=== PATIENT | female | born 1975 | race Caucasian/White ===

== ENCOUNTER → 2016-06-16 | Outpatient (CLI) | payer BC ==
[~2016-06-16] MED LIST: CATAFLAM50 MG PO; CELEXA10 MG PO; CHANTIX1 TAB PO; CLINDAMYCIN HC300 MG PO; CLINDAMYCIN150 MG PO; GLUCOSAMINE & C1 CA2 PO; HYDROCODONE BIT1 T11 PO; KEFLEX500 MG PO; MOTRIN800 MG PO; NAPROSYN500 MG PO; NKHM; PERCOCET 325 MG1 TA2 PO; ROBAXIN750 MG PO; TRAMADOL HCL50 MG PO; ULTRAM50 MG PO; VICODIN 5/500 505 MG PO; VICODIN ES 7501 TAB PO; VITAMIN D400 IU PO; XANAX0.5 MG PO; [UNRECOGNIZED DRUG - OTHER] PO
[2016-06-16 16:24] LABS: BASO % 0.4 % (0.0-1.0); EOS # 0.2 10*3/uL (0.0-0.4); EOS % 2.6 % (1.0-4.0); HEMATOCRIT 38.6 % (37.0-47.0); HEMOGLOBIN 12.4 g/dl (12.0-16.0); LYMPH # 1.7 10*3/uL (1.3-4.4); LYMPH % 22.6 % (27.0-41.0); MEAN CELL VOLUME 85.8 fl (81.0-99.0); MEAN CORPUSCULAR HGB 27.6 pg (27.0-31.0); MEAN CORPUSCULAR HGB CONC 32.1 g/dl (33.0-37.0); MONO # 0.6 10*3/uL (0.1-1.0); MONO % 8.2 % (3.0-9.0); NEUT # 4.8 10*3/uL (2.3-7.9); NEUT % 65.9 % (47.0-73.0); PLATELET COUNT AUTOMATED 185 10*3/uL (130-400); RED CELL DISTRI WIDTH 14.4 % (0-14.5); WHITE BLOOD COUNT 7.3 10*3/uL (4.8-10.8)
[2016-06-16 16:50] LABS: ALBUMIN 3.5 gm/dl (3.1-4.5); ALKALINE PHOSPHATASE 63 U/L (45-117); BILIRUBIN, TOTAL 0.2 mg/dl (0.2-1.0); BUN 8 mg/dl (7-24); CARBON DIOXIDE 29 mmol/L (21-32); CHLORIDE 106 mmol/L (98-107); CHOLESTEROL 193 mg/dL (<200); EST GLOM FILT AFRICAN AMERICAN > 60 ml/min; GLUCOSE 98 mg/dL (65-99); HDL CHOLESTEROL 42 mg/dl (40-60); LDL CHOLESTEROL 107 mg/dL (9-159); POTASSIUM 4.3 mmol/L (3.5-5.1); SGOT/AST 14 IU/L (3-35); SGPT/ALT 28 U/L (12-78); SODIUM 142 mmol/L (136-145); TRIGLYCERIDES 221 mg/dl (<150); VLDL CHOLESTEROL 44 mg/dL (6-40)
[2016-06-16 16:52] LABS: FOLIC ACID 7.04 ng/mL (>5.38); VITAMIN D, 25-HYDROXY 14.1 ng/mL (30-100)
== END | disposition home or self-care (01) ==
LOC: LAB 15:32
PROVIDERS: Internal Medicine
DX: Z00.00 Encounter for general adult medical examination without abnormal findings (principal); Z13.220 Encounter for screening for lipoid disorders; Z13.21 Encounter for screening for nutritional disorder; Z13.1 Encounter for screening for diabetes mellitus

== ENCOUNTER 2016-09-30 21:16 | Emergency (ER) | payer BC ==
[~2016-09-30] VITALS: Wt 108.9 kg
--- NOTE | ~2016-09-30 | EKG ---
[place], [place] ELECTROCARDIOGRAM REPORT NAME: CHANDA CORNELIUS UNIT #: [id number] ROOM: DOCTOR: SARABJIT HAWK MD BIRTHDATE: [birth year] DOS: 09/30/2016 TIME: 2154 hours. Sinus tachycardia 123 beats per minute. The tracing is normal. No previous tracing is available for comparison. SARABJIT HAWK MD CM:EKGRPT:ELECTROCARDIOGRAM REPORT 06 0012 SARABJIT HAWK MD
[2016-09-30] MEDS ORDERED: LISINOPRIL5 MG PO (21:27)
[2016-09-30] MEDS ORDERED: XANAX0.5 MG PO (21:27)
[2016-09-30] MEDS ORDERED: CELEXA10 MG PO (21:27)
[2016-09-30 22:08] LABS: BASO % 0.2 % (0.0-1.0); EOS # 0.2 10*3/uL (0.0-0.4); EOS % 2.6 % (1.0-4.0); HEMATOCRIT 39.6 % (37.0-47.0); HEMOGLOBIN 12.7 g/dl (12.0-16.0); LYMPH # 0.8 10*3/uL (1.3-4.4); LYMPH % 8.9 % (27.0-41.0); MEAN CELL VOLUME 85.9 fl (81.0-99.0); MEAN CORPUSCULAR HGB 27.5 pg (27.0-31.0); MEAN CORPUSCULAR HGB CONC 32.1 g/dl (33.0-37.0); MEAN PLATELET VOLUME 10.2 fl (9.6-12.3); MONO # 0.5 10*3/uL (0.1-1.0); MONO % 5.7 % (3.0-9.0); NEUT # 7.4 10*3/uL (2.3-7.9); NEUT % 82.2 % (47.0-73.0); PLATELET COUNT AUTOMATED 188 10*3/uL (130-400); RED BLOOD COUNT 4.61 10*6/uL (4.10-5.10); RED CELL DISTRI WIDTH 15.3 % (0-14.5)
[2016-09-30 22:12] LABS: BILIRUBIN NEGATIVE (NEGATIVE); BLOOD 2+ (NEGATIVE); CLARITY SL CLOUDY (CLEAR); COLOR YELLOW (YELLOW); GLUCOSE NEGATIVE (NEGATIVE); KETONE NEGATIVE (NEGATIVE); LEUKO ESTERASE NEGATIVE (NEGATIVE); NITRITE NEGATIVE (NEGATIVE); PH 6.5 (5.0-9.0); PROTEIN NEGATIVE (NEGATIVE); SPECIFIC GRAVITY 1.015 (1.005-1.030); UROBILINOGEN 0.2 E.U./dl (0.2-1.0)
[2016-09-30 22:19] LABS: BACTERIA 4+; URINE REFLEX COMMENT YES (NO)
[2016-09-30 22:24] LABS: ALBUMIN 3.4 gm/dl (3.1-4.5); ALKALINE PHOSPHATASE 63 U/L (45-117); BILIRUBIN, TOTAL 0.5 mg/dl (0.2-1.0); BUN 13 mg/dl (7-24); CARBON DIOXIDE 27 mmol/L (21-32); CHLORIDE 104 mmol/L (98-107); EST GLOM FILT AFRICAN AMERICAN > 60 ml/min; GLUCOSE 140 mg/dL (65-99); POTASSIUM 3.8 mmol/L (3.5-5.1); SGOT/AST 17 IU/L (3-35); SGPT/ALT 36 U/L (12-78); SODIUM 141 mmol/L (136-145); TOTAL PROTEIN 7.2 gm/dL (6.4-8.2)
[2016-09-30 22:29] LABS: TROPONIN I < 0.015 ng/ml (<0.045)
[2016-09-30] MEDS ORDERED: CIPRO250 MG PO (23:19)
[2016-09-30] MEDS ORDERED: PYRIDIUM200 M1 PO (23:19)
== END 2016-09-30 23:36 | disposition home or self-care (01) ==
LOC: ED 21:16
PROVIDERS: Student in an Organized Health Care Education/Training Program
DX: N39.0 Urinary tract infection, site not specified (principal); Z88.0 Allergy status to penicillin; Z88.6 Allergy status to analgesic agent; Z90.49 Acquired absence of other specified parts of digestive tract; Z79.899 Other long term (current) drug therapy

== ENCOUNTER 2016-10-17 21:37 | Emergency (ER) | payer BC ==
[~2016-10-17 21:37] MED LIST changes: +CIPRO250 MG PO; +LISINOPRIL5 MG PO; +PYRIDIUM200 M1 PO
[2016-10-17 22:31] LABS: BASO % 0.4 % (0.0-1.0); EOS # 0.3 10*3/uL (0.0-0.4); EOS % 3.1 % (1.0-4.0); HEMATOCRIT 36.2 % (37.0-47.0); HEMOGLOBIN 11.6 g/dl (12.0-16.0); LYMPH # 2.1 10*3/uL (1.3-4.4); LYMPH % 25.2 % (27.0-41.0); MEAN CORPUSCULAR HGB 27.6 pg (27.0-31.0); MEAN PLATELET VOLUME 10.4 fl (9.6-12.3); MONO # 0.6 10*3/uL (0.1-1.0); MONO % 7.1 % (3.0-9.0); NEUT # 5.2 10*3/uL (2.3-7.9); NEUT % 63.8 % (47.0-73.0); PLATELET COUNT AUTOMATED 167 10*3/uL (130-400); RED BLOOD COUNT 4.21 10*6/uL (4.10-5.10); WHITE BLOOD COUNT 8.1 10*3/uL (4.8-10.8)
[2016-10-17 22:43] LABS: BUN 11 mg/dl (7-24); CARBON DIOXIDE 27 mmol/L (21-32); CHLORIDE 106 mmol/L (98-107); EST GLOM FILT AFRICAN AMERICAN > 60 ml/min; GLUCOSE 110 mg/dL (65-99); POTASSIUM 3.7 mmol/L (3.5-5.1); SODIUM 141 mmol/L (136-145)
[2016-10-17] MEDS ORDERED: KETOROLAC10 MG PO (23:39)
[2016-10-17] MEDS ORDERED: NORCO 5-325 TA1 EACH PO (23:59)
== END 2016-10-17 23:50 | disposition home or self-care (01) ==
LOC: ED 21:37
PROVIDERS: Emergency Medicine Emergency Medical Services
DX: R20.9 Unspecified disturbances of skin sensation (principal); G43.909 Migraine, unspecified, not intractable, without status migrainosus; M79.89 Other specified soft tissue disorders; Z88.0 Allergy status to penicillin; Z88.6 Allergy status to analgesic agent; Z79.899 Other long term (current) drug therapy

== ENCOUNTER 2016-11-08 22:48 | Emergency (ER) | payer BC ==
[~2016-11-08 22:48] MED LIST changes: +KETOROLAC10 MG PO; +NORCO 5-325 TA1 EACH PO
[2016-11-08] MEDS ORDERED: VITAMIN D50000 I3 PO (22:49)
[2016-11-08] MEDS ORDERED: ANAPROX DS550 MG PO (23:23)
== END 2016-11-08 23:35 | disposition home or self-care (01) ==
LOC: ED 22:48
DX: M25.551 Pain in right hip (principal); Z88.0 Allergy status to penicillin; Z88.6 Allergy status to analgesic agent; Z90.49 Acquired absence of other specified parts of digestive tract

== ENCOUNTER 2017-03-15 20:03 | Emergency (ER) | payer BC ==
[~2017-03-15] VITALS: Ht 162.5 cm; Wt 104.3 kg
[~2017-03-15 20:03] MED LIST changes: +ANAPROX DS550 MG PO; +VITAMIN D50000 I3 PO
[2017-03-15 21:04] LABS: BASO % 0.3 % (0.0-1.0); EOS # 0.1 10*3/uL (0.0-0.4); EOS % 1.4 % (1.0-4.0); HEMATOCRIT 36.7 % (37.0-47.0); LYMPH # 1.4 10*3/uL (1.3-4.4); LYMPH % 21.2 % (27.0-41.0); MEAN CELL VOLUME 84.2 fl (81.0-99.0); MEAN CORPUSCULAR HGB 27.5 pg (27.0-31.0); MEAN CORPUSCULAR HGB CONC 32.7 g/dl (33.0-37.0); MEAN PLATELET VOLUME 11.5 fl (9.6-12.3); MONO # 0.5 10*3/uL (0.1-1.0); MONO % 7.9 % (3.0-9.0); NEUT # 4.6 10*3/uL (2.3-7.9); NEUT % 68.9 % (47.0-73.0); PLATELET COUNT AUTOMATED 139 10*3/uL (130-400); RED BLOOD COUNT 4.36 10*6/uL (4.10-5.10); RED CELL DISTRI WIDTH 16.5 % (0-14.5); WHITE BLOOD COUNT 6.6 10*3/uL (4.8-10.8)
[2017-03-15 21:22] LABS: BUN 8 mg/dl (7-24); CHLORIDE 105 mmol/L (98-107); CREATININE 0.86 mg/dL (0.55-1.02); POTASSIUM 3.2 mmol/L (3.5-5.1); SODIUM 137 mmol/L (136-145)
[2017-03-15] MEDS ORDERED: Motrin,Rufen400 MG PO (22:16)
[2017-03-15] MEDS ORDERED: ZOFRAN ODT4 MG SL (22:18)
== END 2017-03-15 23:02 | disposition home or self-care (01) ==
LOC: ED 20:03
PROVIDERS: Emergency Medicine Emergency Medical Services
DX: B34.9 Viral infection, unspecified (principal); F17.200 Nicotine dependence, unspecified, uncomplicated; G43.909 Migraine, unspecified, not intractable, without status migrainosus; Z98.890 Other specified postprocedural states; Z90.49 Acquired absence of other specified parts of digestive tract; Z79.899 Other long term (current) drug therapy; Z88.0 Allergy status to penicillin; Z88.6 Allergy status to analgesic agent

== ENCOUNTER 2017-03-17 20:40 | Inpatient (IN) | payer BC ==
[~2017-03-17] VITALS: Ht 162.6 cm; Wt 116.1 kg
--- NOTE | ~2017-03-17 | DS ---
[place], [place] DISCHARGE SUMMARY NAME: CHANDA CORNELIUS [facility] #: [id number] UNIT #: [id number] ROOM: 426 DOCTOR: BETSEY SANTOS MD BIRTHDATE: [birth year] DOS: 03/19/2017 DISCHARGE DIAGNOSES: 1. Postural hypotension, hypovolemia and dehydration from viral syndrome. 2. Generalized anxiety disorder. 3. Obesity. 4. Benign essential hypertension. HOSPITAL COURSE: The patient presented with dizziness, hypotension and orthostatic hypotension, apparently related to viral syndrome. The patient was taken off her blood pressure medications and hydrated with IV fluid and she has been ambulating normally. The patient does not get dizzy anymore when she gets up and her blood pressures have been normal. The patient also remains in normal sinus rhythm with no tachycardia. The patient is being discharged to home to follow up with her PCP, Dr. Heaton, next week, and she will be kept off her blood pressure medications for now until her blood pressure goes high again. Major depression, recurrent. We will continue to citalopram. Generalized anxiety disorder for which we will continue her Xanax as needed. LABORATORY DATA: Blood cultures negative x 2. Echocardiogram was normal except for mild concentric LVH. Carotid arterial Dopplers were normal. Normal serum electrolytes. CT of the head was normal. No leukocytosis. DISCHARGE MANAGEMENT: Citalopram 10 mg, Tylenol p.r.n., Xanax 0.5 mg at bedtime p.r.n. Follow up with her PCP, Dr. Heaton, next week. BETSEY SANTOS MD CM:DISCHARG 1805 18 BETSEY SANTOS MD 03/19/17 2218 interface
--- NOTE | ~2017-03-17 | CON ---
[place], [place] REPORT OF CONSULTATION [id number] UNIT #: [id number] ROOM: 426 DOCTOR: SHERIN MACARIO MD BIRTHDATE: [birth year] DOS: 03/18/2017 REASON FOR CONSULTATION: Lightheadedness and near syncope. HISTORY OF PRESENT ILLNESS: The patient is a 42-year-old woman who has no previous history of heart disease. She does have a history of hypertension, which is being managed with lisinopril. She was in her normal state of health until 4 days ago. While sitting quietly, she began to feel lightheaded. She stated that when she stood up, she felt like she was going to fall and she had to sit down again. She went to bed thinking that it would improve spontaneously, but by the next day it was still present, so she went to the Emergency Room. She was told that her symptoms were likely to be viral. She was given IV fluids and allowed to leave. Despite this, she continued to feel poorly and therefore last evening she came back to the hospital and was admitted. She did have orthostatic hypotension in the Emergency Room. Blood pressure supine was 124/69 with a pulse of 97, sitting her pulse went to 111 with blood pressure 124/78, standing her blood pressure dropped to 100/71 with a heart rate of 121. She was hydrated, but continues to feel lightheaded with standing. Nonetheless, her heart rate has decreased. PAST MEDICAL HISTORY: Includes: 1. Essential hypertension. 2. Anxiety and depression. 3. Status post tonsillectomy and cholecystectomy along with right hip surgery x 2. 4. History of 4 sections. FAMILY HISTORY: Positive for diabetes and congestive heart failure. The patient states that her sister had rheumatic fever. REVIEW OF SYSTEMS: The patient denies diplopia or loss of vision. She denies syncope. She did have lightheadedness, prompting the current admission. She denies any focal weakness. She denies fevers, chills, sweats or recent weight change, although she stated that she was somewhat fevers a few days ago. She did have some nausea just prior to admission, but this has resolved. She denied any vomiting or diarrhea. She denied hemoptysis or hematemesis. She denied change in bowel or bladder habits and denied blood in her stools or urine. She denied any peripheral edema or history of blood clots. She denied any hot or swollen joints. She denied any skin rashes. The remainder of the review of systems is negative except as noted above. SOCIAL HISTORY: The patient is and lives with her . She smokes on occasion. She does not consume significant amounts of alcohol. She does consume soda and caffeine. PHYSICAL EXAMINATION: GENERAL: She is an overweight white female who is awake, alert and oriented. VITAL SIGNS: Pulse is 74 and regular, but on my exam today it seems higher at about 100, blood pressure is 121/72. She is afebrile. She weighs 116.1 kg and has a body mass index of 43.9. [place], [place] REPORT OF CONSULTATION NAME: CHANDA CORNELIUS UNIT #: [id number] ROOM: 42 DOCTOR: SHERIN MACARIO MD BIRTHDATE: [birth year] HEENT: Normocephalic, atraumatic. Extraocular muscles are intact. Sclerae are clear. Pupils equal, round and react to light. The oral mucosa is moist. Tongue is midline. NECK: Supple. She has no jugular distention. Carotids are full. She has no bruit. She has no neck or supraclavicular masses. No thyromegaly. LUNGS: Respirations are unlabored. CHEST: Clear to auscultation and percussion. She has no presacral edema or chest wall tenderness. CARDIOVASCULAR: Her heart has a regular rhythm. She has a soft fourth heart sound, but no third heart sound or murmur. The PMI is not displaced. There is no precordial heave, lift or thrill. She has no precordial rub. ABDOMEN: Soft and normally active without masses, organomegaly or bruits. EXTREMITIES: Showed no clubbing, cyanosis or edema. Peripheral pulses were easily palpated bilaterally. LABORATORY DATA: I reviewed her electrocardiogram, which showed no acute changes. Hemoglobin is 12.3, hematocrit 37.6. There are 5400 white cells and 129,000 platelets present. Sodium is 140, potassium 3.8, chloride 107, CO2 of 26, BUN 6, creatinine 0.81. Troponin was normal. TSH has not yet been done. IMPRESSION: 1. Lightheadedness and weakness. The patient does have documented orthostatic lightheadedness and orthostatic tachycardia. 2. Essential hypertension, which appears to be well controlled. PLAN: The patient's history and exam does not suggest structural heart disease or ischemic heart disease, but we will obtain an echocardiogram to evaluate her left ventricular function, wall motion, and valve function. I agree with hydration and observation. We will check TSH. Further recommendations will depend upon the results of her testing. I thank Dr. Carol Heaton for asking our advice regarding her care. SHERIN MACARIO MD CM:CONSTR:REPORT OF CONSULTATION 1116 03/18/17 1553 interface
--- NOTE | ~2017-03-17 | WRIGHTHP ---
[place], [place] PATIENT HISTORY AND PHYSICAL EXAM NAME[id number] UNIT #: [id number] ROOM: 426 DOCTOR: MELANIA GARCIA MD BIRTHDATE: [birth year] DOS: 03/15/2017 HISTORY OF PRESENT ILLNESS: The patient is 42-year-old, very well known to us, comes in with complaints of dizziness. The patient states that she woke up on Wednesday morning with extreme dizziness, unable to stand up. She had a low-grade fever, some URI symptoms, so she decided to come in to the Emergency Room where she was evaluated and was discharged as URI on Zofran and Motrin. The patient went home, continued to be dizzy, especially when she stands up and so decided to come back to the Emergency Room and this time orthostatic blood pressures were checked and she was found to be dropping more than 20 point systolic, so the patient was admitted. She does not have any chest pains or palpitations. She does not have any fever or chills, does not have any urinary symptoms. She does not have any diarrhea. She has been eating and drinking properly and has been taking her medications. PAST MEDICAL HISTORY: Significant for: 1. Generalized anxiety disorder. 2. Benign hypertension. MEDICATIONS: Xanax p.r.n., citalopram 10 and lisinopril 10. SOCIAL HISTORY: Smoker of a half pack of cigarettes a day. Denies using any alcohol. Lives at home with her . Children are still young. FAMILY HISTORY: Mother a year ago with sudden cardiac . PHYSICAL EXAMINATION: GENERAL: She is awake and alert and oriented. VITAL SIGNS: Graphic trend shows that she is afebrile, pressure is 135/84, pulse of 82, respirations 20, temperature 98.3. This morning orthostatics: Supine 124/69, sitting 124/78, standing 100/71. LUNGS: Diminished breath sounds. HEART: Regular. ABDOMEN: Obese, soft, nontender. EXTREMITIES: Without any edema. LABORATORY DATA: Normal this morning. Hypokalemia noted on the . ASSESSMENT AND PLAN: 1. Orthostatic hypotension, possibly from the viral fever. The patient is placed on IV fluids. We will discontinue lisinopril. Cardiology consultation was obtained. Labs do not look too bad to indicate any evidence of dehydration or gastrointestinal bleed. 2. Benign hypertension, again hold off on antihypertensives right now. 3. Generalized anxiety disorder, stable. 4. Hypokalemia, which was noted on the , which has corrected now. [place], [place] PATIENT HISTORY AND PHYSICAL EXAM NAME: CHANDA CORNELIUS UNIT #: [id number] ROOM: 426 DOCTOR: MELANIA GARCIA MD BIRTHDATE: [birth year] MELANIA GARCIA MD CM:HISPHYS:PATIENT HISTORY AND PHYSICAL EXAMINATION 2 0857 MELANIA GARCIA MD 03/18/17 1530 VIRGIE HARTMANN.R
--- NOTE | ~2017-03-17 | EKG ---
[place], [place] ELECTROCARDIOGRAM REPORT NAME: CHANDA CORNELIUS UNIT #: [id number] ROOM: 426 DOCTOR: SARABJIT HAWK MD BIRTHDATE: [birth year] DOS: 03/17/2017 TIME: 2128 hours. Normal sinus rhythm at 100 beats per minute. The tracing is normal. No previous tracing is available for comparison. SARABJIT HAWK MD CM:EKGRPT:ELECTROCARDIOGRAM REPORT 1148 [id number] SARABJIT HAWK MD
--- NOTE | ~2017-03-17 | WRIGHTHP ---
[place], [place] PATIENT HISTORY AND PHYSICAL EXAM NAME[id number] UNIT #: [id number] ROOM: 426 DOCTOR: MELANIA GARCIA MD BIRTHDATE: [birth year] DOS: 03/15/2017 HISTORY OF PRESENT ILLNESS: The patient is 42-year-old, very well known to us, comes in with complaints of dizziness. The patient states that she woke up on Wednesday morning with extreme dizziness, unable to stand up. She had a low-grade fever, some URI symptoms, so she decided to come in to the Emergency Room where she was evaluated and was discharged as URI on Zofran and Motrin. The patient went home, continued to be dizzy, especially when she stands up and so decided to come back to the Emergency Room and this time orthostatic blood pressures were checked and she was found to be dropping more than 20 point systolic, so the patient was admitted. She does not have any chest pains or palpitations. She does not have any fever or chills, does not have any urinary symptoms. She does not have any diarrhea. She has been eating and drinking properly and has been taking her medications. PAST MEDICAL HISTORY: Significant for: 1. Generalized anxiety disorder. 2. Benign hypertension. MEDICATIONS: Xanax p.r.n., citalopram 10 and lisinopril 10. SOCIAL HISTORY: Smoker of a half pack of cigarettes a day. Denies using any alcohol. Lives at home with her . Children are still young. FAMILY HISTORY: Mother a year ago with sudden cardiac . PHYSICAL EXAMINATION: GENERAL: She is awake and alert and oriented. VITAL SIGNS: Graphic trend shows that she is afebrile, pressure is 135/84, pulse of 82, respirations 20, temperature 98.3. This morning orthostatics: Supine 124/69, sitting 124/78, standing 100/71. LUNGS: Diminished breath sounds. HEART: Regular. ABDOMEN: Obese, soft, nontender. EXTREMITIES: Without any edema. LABORATORY DATA: Normal this morning. Hypokalemia noted on the . ASSESSMENT AND PLAN: 1. Orthostatic hypotension, possibly from the viral fever. The patient is placed on IV fluids. We will discontinue lisinopril. Cardiology consultation was obtained. Labs do not look too bad to indicate any evidence of dehydration or gastrointestinal bleed. 2. Benign hypertension, again hold off on antihypertensives right now. 3. Generalized anxiety disorder, stable. 4. Hypokalemia, which was noted on the , which has corrected now. [place], [place] PATIENT HISTORY AND PHYSICAL EXAM NAME: CHANDA CORNELIUS UNIT #: [id number] ROOM: 426 DOCTOR: MELANIA GARCIA MD BIRTHDATE: [birth year] MELANIA GARCIA MD CM:HISPHYS:PATIENT HISTORY AND PHYSICAL EXAMINATION 0857 MELANIA GARCIA MD 03/18/17 1527 interface
[~2017-03-17 20:40] MED LIST changes: +Motrin,Rufen400 MG PO; +ZOFRAN ODT4 MG SL
[2017-03-17 20:54] VITALS: BP 158/99
[2017-03-17 21:34] VITALS: BP 124/69
[2017-03-17 21:35] VITALS: BP 100/71; BP 124/78
[2017-03-17 21:53] LABS: BASO % 0.2 % (0.0-1.0); EOS # 0.1 10*3/uL (0.0-0.4); EOS % 0.9 % (1.0-4.0); HEMATOCRIT 37.6 % (37.0-47.0); HEMOGLOBIN 12.3 g/dl (12.0-16.0); LYMPH # 1.1 10*3/uL (1.3-4.4); MEAN CELL VOLUME 83.2 fl (81.0-99.0); MEAN CORPUSCULAR HGB 27.2 pg (27.0-31.0); MEAN CORPUSCULAR HGB CONC 32.7 g/dl (33.0-37.0); MEAN PLATELET VOLUME 11.7 fl (9.6-12.3); MONO # 0.5 10*3/uL (0.1-1.0); MONO % 9.2 % (3.0-9.0); NEUT # 3.8 10*3/uL (2.3-7.9); NEUT % 69.3 % (47.0-73.0); PLATELET COUNT AUTOMATED 129 10*3/uL (130-400); RED BLOOD COUNT 4.52 10*6/uL (4.10-5.10); RED CELL DISTRI WIDTH 16.5 % (0-14.5); WHITE BLOOD COUNT 5.4 10*3/uL (4.8-10.8)
[2017-03-17 22:10] VITALS: BP 112/65
[2017-03-17 22:12] LABS: ALBUMIN 3.2 gm/dl (3.1-4.5); ALKALINE PHOSPHATASE 63 U/L (45-117); BUN 7 mg/dl (7-24); CHLORIDE 104 mmol/L (98-107); CREATININE 0.86 mg/dL (0.55-1.02); POTASSIUM 3.5 mmol/L (3.5-5.1); SGOT/AST 23 IU/L (3-35); SGPT/ALT 41 U/L (12-78); SODIUM 139 mmol/L (136-145); TOTAL PROTEIN 7.1 gm/dL (6.4-8.2)
[2017-03-17 22:13] LABS: TROPONIN I < 0.015 ng/ml (<0.045)
--- NOTE | 2017-03-17 22:19 | NUR ---
PATIENT REPORTS THAT SHE DOES NOT FEEL LIKE SHE HAS TO URINATE AT THIS TIME. PATIENT INSTRUCTED TO USE HER CALL LIGHT WHEN SHE IS ABLE.
[2017-03-17 22:43] VITALS: BP 123/74
[2017-03-17 22:46] LABS: BILIRUBIN NEGATIVE (NEGATIVE); BLOOD TRACE-INTACT (NEGATIVE); CLARITY CLEAR (CLEAR); COLOR YELLOW (YELLOW); GLUCOSE NEGATIVE (NEGATIVE); KETONE NEGATIVE (NEGATIVE); LEUKO ESTERASE NEGATIVE (NEGATIVE); NITRITE NEGATIVE (NEGATIVE); UROBILINOGEN 0.2 E.U./dl (0.2-1.0)
[2017-03-17 22:51] LABS: EPITHELIAL CELLS 15-20
[2017-03-17 22:52] LABS: BACTERIA 1+; WBC 0-2 wbc/hpf (0-5)
[2017-03-18 00:24] VITALS: BP 135/84
--- NOTE | 2017-03-18 00:24 | NUR ---
A 42, admitted to , under the services of MELANIA Brown MD with a diagnosis of SYNCOPE. Chief complaint is DIZZINESS. Patient arrived via bed from ER. Monitor applied. Initial assessment completed. Vital signs taken and recorded. MELANIA BROWN MD notified of admission to the unit. Orders received. See assessment for past medical history, medications and allergies. Patient and/or family oriented to unit. [facility]. Clothing/patient valuable form completed. TIM PEÑA
--- NOTE | 2017-03-18 01:25 | NUR ---
DR. GARCIA NOTIFIED OF PT. ADMISSION, SEE NEW ORDERS.
--- NOTE | 2017-03-18 02:57 | NUR ---
PRN TYLENOL GIVEN PER PT. REQUEST FOR HEADACHE RATING A 6/10. WILL MONITOR.
--- NOTE | 2017-03-18 03:19 | NUR ---
PRN TYLENOL SEEMS TO BE EFFECTIVE, PT. IS COMFORTABLY SLEEPING AT THIS TIME WITH RESPIRATIONS EASY AND REGULAR. CALL LIGHT WITHIN REACH AND BED IN LOWEST POSITION.
[2017-03-18 06:18] LABS: BUN 6 mg/dl (7-24); CHLORIDE 107 mmol/L (98-107); CREATININE 0.81 mg/dL (0.55-1.02); POTASSIUM 3.8 mmol/L (3.5-5.1); SODIUM 140 mmol/L (136-145)
--- NOTE | 2017-03-18 06:45 | NUR ---
DR. MACARIO CONTACTED THROUGH CALL SERVICE.
--- NOTE | 2017-03-18 07:06 | NUR ---
DR. MACARIO CALLED BACK REGARDING CONSULT, WILL BE IN TO SEE PT.
[2017-03-18 08:00] VITALS: BP 121/72
--- NOTE | 2017-03-18 08:30 | NUR ---
Editing Intern in to talk to patient. Patient states lives at HOME with HER CHILDREN. There are 23 steps in the home. Physician: DR GARCIA Pharmacy: [facility] Home health services: NONE Patient's level of ADLs: INDEPENDENT Patient has working utilities: YES DME: NONE Follow-up physician's appointment after d/c: PREFERS TO MAKE HER OWN APPT Does patient want to access PORTAL?: Discharge plan HOME. MACI LARSEN
[2017-03-18 12:00] VITALS: BP 124/67
--- NOTE | 2017-03-18 13:41 | NUR ---
PT GIVEN TYLENOL FOR PAIN. WILL CONTINUE TO MONITOR PT.
[2017-03-18 16:00] VITALS: BP 145/83
[2017-03-18 20:00] VITALS: BP 135/78
[2017-03-19] VITALS: BP 128/82
[2017-03-19 08:00] VITALS: BP 132/64
--- NOTE | 2017-03-19 08:12 | NUR ---
PT REQUESTED MEDICATION FOR HEADACHE. PAIN RATED AT A 4 OUT OF 10 AND LOCATED ALONG THE FOREHEAD.
[2017-03-19 12:00] VITALS: BP 135/82
[2017-03-19 16:00] VITALS: BP 133/74
--- NOTE | 2017-03-19 18:46 | NUR ---
AGREED WITH DISCHARGE BY DR. SANTOS.
--- NOTE | 2017-03-19 18:54 | NUR ---
Discharge instructions reviewed with patient/family. Patient receptive and verbalizes understanding. Follow-up care arranged. Written instructions given to patient/family. NICOL TIM
== END 2017-03-19 19:10 | disposition home or self-care (01) | DRG 312 ==
LOC: ED 20:40 → 4E 23:06 → EDHOLD 23:06 → 4E 23:28
PROVIDERS: Student in an Organized Health Care Education/Training Program; ADMIT Internal Medicine
DX: I95.1 Orthostatic hypotension (principal); Z68.41 Body mass index [BMI] 40.0-44.9, adult; B34.9 Viral infection, unspecified; E86.0 Dehydration; E87.6 Hypokalemia; E86.1 Hypovolemia; F41.1 Generalized anxiety disorder; E66.9 Obesity, unspecified; I10 Essential (primary) hypertension; Z88.0 Allergy status to penicillin; Z88.8 Allergy status to other drugs, medicaments and biological substances; Z79.899 Other long term (current) drug therapy; G43.909 Migraine, unspecified, not intractable, without status migrainosus; Z83.3 Family history of diabetes mellitus; Z82.49 Family history of ischemic heart disease and other diseases of the circulatory system; Z90.89 Acquired absence of other organs; Z90.49 Acquired absence of other specified parts of digestive tract

== ENCOUNTER 2017-03-26 18:13 | Emergency (ER) | payer BC ==
[~2017-03-26] VITALS: Ht 162.5 cm; Wt 104.3 kg
[2017-03-26] MEDS ORDERED: Tobrex Ophth S2.5 ML OPH (18:36)
[2017-03-26 18:39] LABS: BILIRUBIN NEGATIVE (NEGATIVE); BLOOD NEGATIVE (NEGATIVE); CLARITY CLOUDY (CLEAR); COLOR YELLOW (YELLOW); GLUCOSE NEGATIVE (NEGATIVE); KETONE NEGATIVE (NEGATIVE); LEUKO ESTERASE TRACE (NEGATIVE); NITRITE POSITIVE (NEGATIVE); PH 6.5 (5.0-9.0); UROBILINOGEN 0.2 E.U./dl (0.2-1.0)
[2017-03-26 18:45] LABS: BACTERIA 4+; RBC 0-2 rbc/hpf (0-2)
[2017-03-26] MEDS ORDERED: PYRIDIUM200 M1 PO (18:47)
[2017-03-26] MEDS ORDERED: Bactrim DS PO (18:47)
== END 2017-03-26 19:02 | disposition home or self-care (01) ==
LOC: ED 18:13
PROVIDERS: Nurse Practitioner Family
DX: H10.89 Other conjunctivitis (principal); N39.0 Urinary tract infection, site not specified; R03.0 Elevated blood-pressure reading, without diagnosis of hypertension; F17.200 Nicotine dependence, unspecified, uncomplicated; G43.909 Migraine, unspecified, not intractable, without status migrainosus; Z98.890 Other specified postprocedural states; Z90.49 Acquired absence of other specified parts of digestive tract; Z79.899 Other long term (current) drug therapy; Z88.0 Allergy status to penicillin; Z88.6 Allergy status to analgesic agent

== ENCOUNTER 2017-03-29 20:54 | Inpatient (IN) | payer BC ==
[~2017-03-29] VITALS: Ht 162.6 cm; Wt 113.7 kg
--- NOTE | ~2017-03-29 | PR ---
[place], [place] PROGRESS NOTE NAME: CHANDA CORNELIUS UNIT #: [id number] ROOM: 508 DOCTOR: ELLIE LINSEY BIRTHDATE: [birth year] DOS: 03/31/2017 SUBJECTIVE: The patient is being followed. She came in with fever. She persists with some dizziness, but she has been afebrile. Blood and urine cultures are negative. White count is 2.4, platelets 92. She is feeling somewhat better, though still somewhat dizzy, has nonproductive cough, no shortness of breath. No nausea, vomiting or diarrhea. No dysuria or frequency or hematuria. She has systemic rash. CURRENT MEDICATIONS: Include Xanax, Benadryl, Tylenol, Tobrex eyedrop, Celexa, Dilaudid and Zofran. PHYSICAL EXAMINATION: VITAL SIGNS: Temperature 98.8, pulse 104, respirations 18, BP 116/60. GENERAL: A 42-year-old female in no acute distress. HEAD, EYES, EARS, NOSE AND THROAT: Normocephalic, no thrush. LUNGS: Clear to auscultation bilaterally. Respirations even and unlabored. HEART: Regular rhythm. No murmur appreciated. ABDOMEN: Soft, nontender. EXTREMITIES: No edema, deformity or cyanosis. SKIN: Warm, dry, has systemic red rash. ASSESSMENT: Adverse drug reaction to Bactrim that was given for E. coli urinary tract infection. PLAN: At this point, she is asymptomatic for any urinary infection. Her repeat urine culture is clear as is her blood cultures. I have discussed the case with Dr. Zarate her attending and recommended no further antibiotics at this point in time, continue her Benadryl. Case discussed with Dr. Benji Villagran. ADDENDUM I agree with the above plans as described. Follow the patient up clinically and adjust accordingly. AUGUST LINSEY ARGUETA [place], [place] PROGRESS NOTE NAME: CHANDA CORNELIUS UNIT #: [id number] ROOM: 508 DOCTOR: ELLIE STILES BIRTHDATE: [birth year] BENJI VILLAGRAN MD CM:CLARITZA 1116 [id number] AUGUST ELLIE SHOT BLAST EQUIPMENT OPERATOR 03/31/17 1843 interface
--- NOTE | ~2017-03-29 | DS ---
[place], [place] DISCHARGE SUMMARY NAME: CHANDA CORNELIUS UNIT #: [id number] ROOM: 508 DOCTOR: DANIELLE MONACOBETSEY J BIRTHDATE: [birth year] DOS: 03/31/2017 DISCHARGE DIAGNOSES: 1. Recent urinary tract infection and drug reaction to Bactrim-DS. Escherichia coli growing out of urine cultures, but she is asymptomatic. Case discussed with Infectious Disease specialist. Her urine has been treated and no more antibiotics needed. 2. Nausea and dizziness resolved with treatment. Apparently from adverse reaction to using Bactrim. 3. Drug rash from Bactrim-DS, resolving with treatment. 4. Generalized anxiety disorder, treated with Xanax as needed. 5. Nicotine smoke dependence. The patient encouraged to stop. She smokes 1 pack of cigarettes a day. 6. Major depression, recurrent, treated and controlled with citalopram. HOSPITAL COURSE: The patient presented to the Emergency Department at [facility] with dizziness and also developed high grade fever of 102.1 degrees Fahrenheit without any leukocytosis. The patient earlier had a resistant infection with E. coli, but she took Bactrim-DS for treatment and developed drug rash. Infectious Disease specialists were consulted and they believe fever and the skin rash was from Bactrim-DS and that the patient does not require any more treatment with antibiotics because of symptoms. She has no urinary symptoms anymore. Generalized anxiety disorder, treated and controlled. Major depression, recurrent, mild, treated citalopram. Nicotine smoke dependence. The patient encouraged to stop smoking cigarettes. CT of the abdomen and pelvis without any acute abnormality. The patient developed some thrombocytopenia and leukopenia, which needs to be observed as an outpatient. The patient has to follow with Dr. Heaton within a week and she needs a repeat CBC at that time. DISCHARGE MANAGEMENT: Citalopram 10 mg a day, Tylenol p.r.n., Xanax 0.5 mg at bedtime p.r.n. for anxiety and sleep, Vicodin patient takes p.r.n. as an outpatient. Follow with Dr. Heaton in less than a week and patient requires a repeat CBC as an outpatient. [place], [place] DISCHARGE SUMMARY NAME: CHANDA CORNELIUS UNIT #: [id number] ROOM: [facility] DOCTOR: BETSEY SANTOS MD BIRTHDATE: [birth year] BETSEY SANTOS MD CM:JAMES [id number] BETSEY SANTOS MD 03/31/17 1544 interface
--- NOTE | ~2017-03-29 | CON ---
[place], [place] REPORT OF CONSULTATION [id number] UN[facility] #: [id number] ROOM: 508 DOCTOR: ELLIE STILES,AUGUST BIRTHDATE: [birth year] DOS: 03/30/2017 HISTORY OF PRESENT ILLNESS: The patient is a 42-year-old female who was admitted from home. She had been hospitalized here a couple of weeks ago for dizziness, not feeling well, hypovolemia. She was also diagnosed with urinary tract infection along the line. She was given Bactrim, she developed a rash shortly after starting the BACTRIM; however, she continued to take it. She finished her last dose last night. She comes in now with a temperature of 102.1, system rash. Denies any urinary symptoms. No dysuria or frequency currently, she did have them previously prior to starting the antibiotics with prior hospitalization. She has not feeling well, still having some dizziness, slight headache as well as nausea. ID was consulted for possible recurrent urinary tract infections and fever. PAST MEDICAL HISTORY: As above, hypertension, dental caries, , tonsillectomy, hip surgery and cholecystectomy. FAMILY MEDICAL HISTORY: Significant for diabetes and congestive heart failure. REVIEW OF SYSTEMS: As above in history of present illness, only has mild headache, no issues with neck stiffness or pain or limited arrange of motion. Does have some low back pain which she states she has had for approximately a week. Little cough, little sputum production. No shortness of breath; mostly dry cough, which she states she has had for a couple of weeks. Her daughter also has a cold. Again, has pruritic rash which she has had since she started the BACTRIM after discharge. She did have nausea, no vomiting, no diarrhea, no peripheral edema. Has had intermittent fevers and sweat with a temperature of 102.1 on admission last night. Further review of systems is unremarkable. LABORATORY DATA: WBC is 4.5, platelets 99, eosinophils within normal limits. BUN 12, creatinine 1.2, sodium 134. LFTs within normal limits. C-reactive protein 12.6. Lipase is normal. test is negative. Blood and urine cultures are pending. UA positive nitrites but only 2-4 wbc's and trace leukocyte esterase. VITAL SIGNS: Temperature 98.2, pulse 124, respirations 18, BP 106/48. CURRENT MEDICATIONS: Include Levaquin, Xanax, Tobrex, ophthalmic drops, Celexa, Dilaudid, Zofran. ALLERGIES: Include PENICILLINS and TRAMADOL. PHYSICAL EXAMINATION: GENERAL: A 42-year-old obese female in no acute distress. HEENT: Normocephalic. NECK: Supple. No thrush. No cervical lymphadenopathy. LUNGS: Clear to auscultation bilaterally. Respirations even and unlabored. HEART: Regular rhythm. No murmur appreciated. ABDOMEN: Soft, nontender, positive bowel sounds, obese. No CVA tenderness. EXTREMITIES: No edema, deformity or cyanosis. [place], [place] REPORT OF CONSULTATION NAME: CHANDA CORNELIUS UNIT #: [id number] ROOM: 508 DOCTOR: ELLIE STILESAUGUST BIRTHDATE: [birth year] SKIN: Warm, dry. She has a systemic rash mainly over her extremities. ASSESSMENT: Fever and rash, on BACTRIM. PLAN: At this point, she is not symptomatic for urinary tract infection and her UA is not particularly impressive. She is however having a significant reaction to the BACTRIM, which can cause drug fevers as well as the rash. At this point, I will stop the Levaquin. Follow up on her cultures and adjust the antibiotics accordingly. Give her Benadryl 25 mg p.o. q.8h. x 3 days. Case discussed with Dr. Benji Villagran. ADDENDUM After reviewing chart, labs, microbiology and radiographs, I agree with the above plans as described. We will follow the patient clinically and adjust accordingly. BROOKE ARGUETA CNP BENJI VILLAGRAN MD CM:CONSTR:REPORT OF CONSULTATION 1026 03/31/17 0851 interface
--- NOTE | ~2017-03-29 | WRIGHTHP ---
[place], [place] PATIENT HISTORY AND PHYSICAL EXAM NAME: CHANDA CORNELIUS [facility] #: [id number] UNIT #: [id number] ROOM: 508 DOCTOR: BETSEY SANTOS MD BIRTHDATE: [birth year] DOS: 03/30/2017 HISTORY OF PRESENT ILLNESS: A 42-year-old female presented with couple of weeks of dizziness and feeling unwell and was found to have urinary tract infection. The patient had earlier received Bactrim and she developed a drug rash. The patient was running a fever of 102.1 degrees Fahrenheit and denied any urinary symptoms. She did have some nausea, but no vomiting. Urine cultures were sent and the patient was admitted and recommended for further management. REVIEW OF SYSTEMS: LUNGS: No increasing shortness of breath or wheezing. GASTROINTESTINAL: The patient had some nausea, but no vomiting. CARDIOVASCULAR: No chest pains or palpitations. FAMILY HISTORY: Noncontributory. SOCIAL HISTORY: Smokes 1 pack of cigarettes a day. Denies any alcohol or drug abuse. MEDICATIONS: Citalopram and Xanax. PHYSICAL EXAMINATION: GENERAL: Alert and oriented x 3. HEENT AND NECK: Extraocular movements are intact. Sclerae are anicteric. Oral mucosa is moist and clean. No obvious facial weakness. Neck is supple without any lymphadenopathy. No thyromegaly. No JVD. No carotid arterial bruits. LUNGS: Clear to auscultation. No wheezing. No rhonchi. CARDIOVASCULAR SYSTEM: Heart rate is regular in rate and rhythm. S1 and S2 normally audible. No significant murmur or any other abnormal cardiac sounds. ABDOMEN: Soft, nontender. No obvious organomegaly. Bowel sounds are present. No obvious herniation. EXTREMITIES: Without significant cyanosis or edema. Warm to touch. CENTRAL NERVOUS SYSTEM: Alert and oriented x 3. Cranial nerves II-XII are intact. Speech is normal. The patient is able to move all extremities. Normal muscle strength. Deep tendon reflexes are equal on both sides. Plantars were downgoing. IMPRESSION: 1. The patient with high grade fever of 102.1 without leukocytosis. The patient had earlier received Bactrim-DS and was given Levaquin, which has been stopped by Infectious Disease specialist and I will repeat blood counts. If the patient shows no signs of infection, then she can be discharged to home soon. 2. Nausea and dizziness. Apparently from recent infection and also drug reaction. The patient was hydrated with normal saline. 3. Urine and blood cultures are pending. 4. Generalized anxiety disorder. Plan is to continue Xanax on as needed basis. 5. Major depression, recurrent, minor, treated with citalopram. 6. Nicotine smoke dependence. The patient encouraged to stop smoking cigarettes. [place], [place] PATIENT HISTORY AND PHYSICAL EXAM NAME: CHANDA CORNELIUS UNIT #: [id number] ROOM: 508 DOCTOR: DANIELLE MONACO,BETSEY Sims BIRTHDATE: [birth year] BETSEY SANTOS MD CM:HISPHYS:PATIENT HISTORY AND PHYSICAL EXAMINATION 19 09 BETSEY SANTOS MD 03/30/17 2008 interface
[~2017-03-29 20:54] MED LIST changes: +Bactrim DS PO; +Tobrex Ophth S2.5 ML OPH
[2017-03-29 21:02] VITALS: BP 141/80
[2017-03-29 22:00] LABS: BASO % 0.2 % (0.0-1.0); EOS # 0.1 10*3/uL (0.0-0.4); EOS % 2.7 % (1.0-4.0); HEMATOCRIT 35.5 % (37.0-47.0); HEMOGLOBIN 11.7 g/dl (12.0-16.0); LYMPH # 0.3 10*3/uL (1.3-4.4); LYMPH % 6.5 % (27.0-41.0); MEAN CELL VOLUME 82.2 fl (81.0-99.0); MEAN CORPUSCULAR HGB 27.1 pg (27.0-31.0); MEAN PLATELET VOLUME 10.5 fl (9.6-12.3); MONO # 0.4 10*3/uL (0.1-1.0); MONO % 9.8 % (3.0-9.0); NEUT # 3.6 10*3/uL (2.3-7.9); NEUT % 80.4 % (47.0-73.0); PLATELET COUNT AUTOMATED 99 10*3/uL (130-400); RED BLOOD COUNT 4.32 10*6/uL (4.10-5.10); RED CELL DISTRI WIDTH 16.1 % (0-14.5); WHITE BLOOD COUNT 4.5 10*3/uL (4.8-10.8)
[2017-03-29 22:12] LABS: BUN 12 mg/dl (7-24); CHLORIDE 102 mmol/L (98-107); POTASSIUM 3.8 mmol/L (3.5-5.1); SODIUM 134 mmol/L (136-145)
[2017-03-29 22:22] LABS: BILIRUBIN 2+ (NEGATIVE); BLOOD 3+ (NEGATIVE); CLARITY CLOUDY (CLEAR); COLOR YELLOW (YELLOW); GLUCOSE TRACE (NEGATIVE); KETONE TRACE (NEGATIVE); LEUKO ESTERASE TRACE (NEGATIVE); NITRITE POSITIVE (NEGATIVE); PH 5.5 (5.0-9.0); SPECIFIC GRAVITY >= 1.030 (1.005-1.030)
[2017-03-29 22:37] LABS: ALBUMIN 3.4 gm/dl (3.1-4.5); ALKALINE PHOSPHATASE 62 U/L (45-117); BILIRUBIN, DIRECT 0.2 mg/dL (0.0-0.2); LIPASE 227 U/L (73-393); SGOT/AST 21 IU/L (3-35); SGPT/ALT 32 U/L (12-78); TOTAL PROTEIN 7.2 gm/dL (6.4-8.2)
--- NOTE | 2017-03-29 22:37 | NUR ---
PT STATES LAST DOSE OF MORTIN WAS 5 PM 400MG MOTRIN
[2017-03-29 22:39] LABS: B-hCG (QUALITATIVE) NEGATIVE (NEGATIVE)
[2017-03-29 22:56] LABS: RBC TNTC rbc/hpf (0-2)
[2017-03-30 01:00] VITALS: BP 98/52; BP 98/54
--- NOTE | 2017-03-30 01:19 | NUR ---
A 42, admitted to 5E, under the services of Dr. DANIELLE MONACO,BETSEY Sims with a diagnosis of UTI, FEVER, BACK PAIN. Chief complaint is WEAKNESS, BACK PAIN, FEVER, BURNING WITH URINATION. Patient arrived via ambulatory from ER. Monitor applied. Initial assessment completed. Vital signs taken and recorded. DR. DANIELLE MONACO,BETSEY Sims notified of admission to the unit. Orders received. See assessment for past medical history, medications and allergies. Patient and/or family oriented to unit. [facility] visitation policy reviewed. Clothing/patient valuable form completed. CHERYL ARGUETA
--- NOTE | 2017-03-30 01:23 | NUR ---
MEDICATIONS VERIFIED FROM PATIENT
--- NOTE | 2017-03-30 01:23 | NUR ---
DR. BRONSON CALLED FOR ORDERS.
--- NOTE | 2017-03-30 01:23 | NUR ---
CALLED [facility] FOR CONSULT. STATED THEY WOULD CALL IN THE MORNING.
[2017-03-30 08:00] VITALS: BP 106/48
--- NOTE | 2017-03-30 08:00 | NUR ---
ASSESSMENT [id number]. PT STATE NO DIFFICULTY VOIDING. COMPLAINS OF RASH ON EXTREMITIES- DENY ITCHING. STATES RASH STARTED AFTER SHE TOOK BACTRIUM AT HOME. DENY PAIN AT THIS TIME. WILL CONTINUE TO MONITOR FOR NEEDS
--- NOTE | 2017-03-30 08:00 | NUR ---
Reinforced Concrete Inspector in to talk to patient. Patient states lives at HOME with HER CHILDREN. There are 23 steps in the home. Physician: DR GARCIA Pharmacy: [facility] Home health services: NONE Patient's level of ADLs: INDEPENDENT Patient has working utilities: YES DME: NONE Follow-up physician's appointment after d/c: PREFERS TO MAKE HER OWN APPT Does patient want to access PORTAL?: Discharge plan HOME. MACI LARSEN
--- NOTE | 2017-03-30 12:49 | NUR ---
SPOKE TO DR. SANTOS - NOTIFIED OF 99.8 TEMP. ORDER FOR TYLENOL GIVEN. PER ID NOTE FROM TODAY PT WAS ON BACTRIUM AT HOME AND THAT COULD CAUSE THE PATIENT FEVER/RASH AND THEY WILL MONITOR CULTURES.
--- NOTE | 2017-03-30 13:21 | NUR ---
PT COMPLAINS OF FEVER AND BACK PAIN. PRN TYLENOL GIVEN. SEE MAR. FIRST DOSE BENADRYL GIVEN FOR RASH
[2017-03-30 16:00] VITALS: BP 105/62
[2017-03-30 20:00] VITALS: BP 137/69
--- NOTE | 2017-03-30 20:42 | NUR ---
PT ASSESSED AT THIS TIME. ALERT ORIENTED AND COOPERATIVE. RESPIRATIONS EASY AND UNLABORED. PT C/O BACK PAIN, RATES IT A 7/10. DILAUDID ADMINISTERED AT THIS TIME VIA IV. PT CURRENTLY IN BED, NO OTHER COMPLAINTS VOICED. ALL SAFETY MEASURES IN PLACE. WILL MONITOR EFFECTIVENESS. CALL LIGHT IN REACH.
--- NOTE | 2017-03-30 21:42 | NUR ---
DILAUDID EFFECTIVE. PT SLEEPING IN BED AT THIS TIME. PT RESPIRATIONS EASY AND UNLABORED. CALL LIGHT IN REACH.
[2017-03-31] VITALS: BP 105/57
--- NOTE | 2017-03-31 04:00 | NUR ---
PT RESTING PEACEFULLY IN BED, NO S/S OF DISTRESS. RESPIRATIONS EASY AND UNLABORED. NOT AWAKENED PER [facility] POLICY. CALL LIGHT IN REACH.
--- NOTE | 2017-03-31 04:43 | NUR ---
24 HR chart check completed.
--- NOTE | 2017-03-31 06:28 | NUR ---
PT GIVEN AM MEDICATIONS, TAKEN WITH EASE. NO NEW ABNORMALITIES NOTED AT THIS TIME. NO S/S OF DISTRESS. PT DENIES ANY PAIN. NO OTHER COMPLAINTS VOICED. CALL LIGHT IN REACH.
[2017-03-31 06:36] LABS: HEMOGLOBIN 11.5 g/dl (12.0-16.0); MEAN CORPUSCULAR HGB 27.4 pg (27.0-31.0); MEAN CORPUSCULAR HGB CONC 31.9 g/dl (33.0-37.0); MEAN PLATELET VOLUME 10.7 fl (9.6-12.3); PLATELET COUNT AUTOMATED 92 10*3/uL (130-400); RED CELL DISTRI WIDTH 16.4 % (0-14.5); WHITE BLOOD COUNT 2.4 10*3/uL (4.8-10.8)
[2017-03-31 06:46] LABS: MEAN CELL VOLUME 85.7 fl (81.0-99.0)
[2017-03-31 07:08] LABS: ATYPICAL LYMPHS 2 % (0-0); TOTAL CELLS COUNTED 100 #CELLS
[2017-03-31 07:10] LABS: PLATELET SUFFICIENCY LOW (NORMAL)
[2017-03-31 08:00] VITALS: BP 116/60
--- NOTE | 2017-03-31 10:15 | NUR ---
PATIENT WAS SOUND ASLEEP WHEN ENTERING ROOM SIGNSTACIAT OTHER STATING SHE NEEDS PAIN MEDICATION. HARD TO WAKE FOR ROUTINE MEDICATIONS, ONCE AWAKE PATIENT SAID YES SHE WANTED PAIN MED. IPLART OTHER UPSET SAYING THIS IS THE LAST TIME YOUR COMING TO THIS HOSPITAL. MEDICATED WITH PRN DILAUDID PER ORDER AND REQUEST BACK PAIN RATED AT 7 OUT OF 10. PATIENT STATES IT COMES AND GOES WILL MONITOR.
--- NOTE | 2017-03-31 12:29 | NUR ---
PATIENT TO BE DISCHARGED HOME EARLIER DILAUDID HELPED.
--- NOTE | 2017-03-31 13:50 | NUR ---
Discharge instructions reviewed with patient/family. Patient receptive and verbalizes understanding. Follow-up care arranged. Written instructions given to patient/family. TANIKA MENDOZA
== END 2017-03-31 13:50 | disposition home or self-care (01) | DRG 607 ==
LOC: ED 20:54 → 5E 03-30 00:16 → EDHOLD 03-30 00:16 → 5E 03-30 00:25
PROVIDERS: Emergency Medicine Emergency Medical Services; Internal Medicine; ADMIT Internal Medicine
DX: L27.1 Localized skin eruption due to drugs and medicaments taken internally (principal); F33.9 Major depressive disorder, recurrent, unspecified; F17.210 Nicotine dependence, cigarettes, uncomplicated; R50.2 Drug induced fever; T37.0X5A Adverse effect of sulfonamides, initial encounter; Y92.239 Unspecified place in hospital as the place of occurrence of the external cause

== ENCOUNTER 2017-06-04 14:55 | Emergency (ER) | payer BC ==
[~2017-06-04] VITALS: Ht 162.5 cm; Wt 108.9 kg
[2017-06-04] MEDS ORDERED: ZOFRAN ODT4 MG SL (16:17)
== END 2017-06-04 16:39 | disposition home or self-care (01) ==
LOC: ED 14:55
DX: A08.4 Viral intestinal infection, unspecified (principal); F17.200 Nicotine dependence, unspecified, uncomplicated; G43.909 Migraine, unspecified, not intractable, without status migrainosus; Z98.890 Other specified postprocedural states; Z90.49 Acquired absence of other specified parts of digestive tract; Z79.899 Other long term (current) drug therapy; Z88.2 Allergy status to sulfonamides; Z88.0 Allergy status to penicillin; Z88.6 Allergy status to analgesic agent

== ENCOUNTER 2017-11-06 06:25 | Emergency (ER) | payer SELFPAY ==
[~2017-11-06] VITALS: Ht 162.5 cm; Wt 108.9 kg
[2017-11-06] MEDS ORDERED: ATENOLOL25 MG PO (06:33)
[2017-11-06 07:55] LABS: BASO % 0.2 % (0.0-1.0); EOS # 0.2 10*3/uL (0.0-0.4); EOS % 2.5 % (1.0-4.0); HEMATOCRIT 38.2 % (37.0-47.0); HEMOGLOBIN 12.4 g/dl (12.0-16.0); LYMPH # 1.7 10*3/uL (1.3-4.4); MEAN CELL VOLUME 87.2 fl (81.0-99.0); MEAN CORPUSCULAR HGB 28.3 pg (27.0-31.0); MEAN CORPUSCULAR HGB CONC 32.5 g/dl (33.0-37.0); MEAN PLATELET VOLUME 11.2 fl (9.6-12.3); MONO # 0.6 10*3/uL (0.1-1.0); MONO % 7.8 % (3.0-9.0); NEUT # 5.5 10*3/uL (2.3-7.9); NEUT % 68.1 % (47.0-73.0); PLATELET COUNT AUTOMATED 148 10*3/uL (130-400); RED BLOOD COUNT 4.38 10*6/uL (4.10-5.10); RED CELL DISTRI WIDTH 15.9 % (0-14.5); WHITE BLOOD COUNT 8.1 10*3/uL (4.8-10.8)
[2017-11-06 08:11] LABS: ALBUMIN 3.7 gm/dl (3.1-4.5); ALKALINE PHOSPHATASE 61 U/L (45-117); BUN 13 mg/dl (7-24); CHLORIDE 107 mmol/L (98-107); POTASSIUM 4.1 mmol/L (3.5-5.1); SGOT/AST 7 IU/L (3-35); SGPT/ALT 20 U/L (12-78); SODIUM 140 mmol/L (136-145); TOTAL PROTEIN 7.1 gm/dL (6.4-8.2)
[2017-11-06 08:18] LABS: BILIRUBIN NEGATIVE (NEGATIVE); BLOOD 3+ (NEGATIVE); CLARITY CLOUDY (CLEAR); COLOR YELLOW (YELLOW); GLUCOSE NEGATIVE (NEGATIVE); KETONE NEGATIVE (NEGATIVE); LEUKO ESTERASE 2+ (NEGATIVE); NITRITE POSITIVE (NEGATIVE); PH 5.5 (5.0-9.0); SPECIFIC GRAVITY >= 1.030 (1.005-1.030); UROBILINOGEN 0.2 E.U./dl (0.2-1.0)
[2017-11-06 08:35] LABS: BACTERIA 3+; RBC 31-40 rbc/hpf (0-2); WBC TNTC wbc/hpf (0-5)
== END 2017-11-06 09:03 | disposition home or self-care (01) ==
LOC: ED 06:25
PROVIDERS: Student in an Organized Health Care Education/Training Program
DX: N39.0 Urinary tract infection, site not specified (principal); I10 Essential (primary) hypertension; F17.200 Nicotine dependence, unspecified, uncomplicated; Z90.49 Acquired absence of other specified parts of digestive tract; Z79.899 Other long term (current) drug therapy; Z88.2 Allergy status to sulfonamides; Z88.0 Allergy status to penicillin; Z88.6 Allergy status to analgesic agent

== ENCOUNTER 2017-12-04 16:36 | Emergency (ER) | payer BC ==
[~2017-12-04] VITALS: Ht 172.7 cm; Wt 107.0 kg
[~2017-12-04 16:36] MED LIST changes: +ATENOLOL25 MG PO
[2017-12-04 17:12] LABS: BILIRUBIN NEGATIVE (NEGATIVE); BLOOD 3+ (NEGATIVE); CLARITY SL CLOUDY (CLEAR); COLOR YELLOW (YELLOW); GLUCOSE TRACE (NEGATIVE); KETONE TRACE (NEGATIVE); LEUKO ESTERASE 3+ (NEGATIVE); NITRITE POSITIVE (NEGATIVE)
[2017-12-04 17:19] LABS: BACTERIA 4+; MUCOUS TRACE; WBC TNTC wbc/hpf (0-5)
== END 2017-12-04 17:44 | disposition home or self-care (01) ==
LOC: ED 16:36
PROVIDERS: Nurse Practitioner Family
DX: N39.0 Urinary tract infection, site not specified (principal); R31.9 Hematuria, unspecified; R03.0 Elevated blood-pressure reading, without diagnosis of hypertension; G43.909 Migraine, unspecified, not intractable, without status migrainosus; Z98.890 Other specified postprocedural states; Z90.49 Acquired absence of other specified parts of digestive tract; Z79.899 Other long term (current) drug therapy; Z88.2 Allergy status to sulfonamides; Z88.0 Allergy status to penicillin; Z88.6 Allergy status to analgesic agent

== ENCOUNTER 2017-12-17 14:08 | Emergency (ER) | payer BC ==
[~2017-12-17] VITALS: Ht 121.9 cm; Wt 105.7 kg
[2017-12-17] MEDS ORDERED: IBUPROFEN600 MG PO (15:56)
== END 2017-12-17 16:00 | disposition home or self-care (01) ==
LOC: ED 14:08
DX: M77.9 Enthesopathy, unspecified (principal); M25.532 Pain in left wrist; Z98.890 Other specified postprocedural states; Z90.49 Acquired absence of other specified parts of digestive tract; Z79.899 Other long term (current) drug therapy; Z88.2 Allergy status to sulfonamides; Z88.0 Allergy status to penicillin; Z88.6 Allergy status to analgesic agent

== ENCOUNTER 2018-02-25 18:31 | Emergency (ER) | payer BC ==
[~2018-02-25] VITALS: Ht 162.5 cm; Wt 104.3 kg
[~2018-02-25 18:31] MED LIST changes: +IBUPROFEN600 MG PO
[2018-02-25 19:08] LABS: BASO % 0.3 % (0.0-1.0); EOS # 0.3 10*3/uL (0.0-0.4); EOS % 2.6 % (1.0-4.0); HEMATOCRIT 40.8 % (37.0-47.0); HEMOGLOBIN 13.2 g/dl (12.0-16.0); LYMPH # 1.6 10*3/uL (1.3-4.4); LYMPH % 17.1 % (27.0-41.0); MEAN CELL VOLUME 86.6 fl (81.0-99.0); MEAN CORPUSCULAR HGB CONC 32.4 g/dl (33.0-37.0); MEAN PLATELET VOLUME 11.1 fl (9.6-12.3); MONO # 0.7 10*3/uL (0.1-1.0); MONO % 7.1 % (3.0-9.0); NEUT # 6.8 10*3/uL (2.3-7.9); NEUT % 72.5 % (47.0-73.0); PLATELET COUNT AUTOMATED 168 10*3/uL (130-400); RED BLOOD COUNT 4.71 10*6/uL (4.10-5.10); RED CELL DISTRI WIDTH 15.1 % (0-14.5); WHITE BLOOD COUNT 9.4 10*3/uL (4.8-10.8)
[2018-02-25 19:24] LABS: ALBUMIN 3.7 gm/dl (3.1-4.5); ALKALINE PHOSPHATASE 62 U/L (45-117); BUN 10 mg/dl (7-24); CHLORIDE 107 mmol/L (98-107); POTASSIUM 3.7 mmol/L (3.5-5.1); SGOT/AST 10 IU/L (3-35); SGPT/ALT 26 U/L (12-78); SODIUM 142 mmol/L (136-145); TOTAL PROTEIN 7.6 gm/dL (6.4-8.2)
[2018-02-25] MEDS ORDERED: ROBITUSSIN DM 105 ML PO (21:07)
[2018-02-25] MEDS ORDERED: PREDNISONE50 MG PO (21:07)
[2018-02-25] MEDS ORDERED: ZITHROMAX250 MG PO (21:07)
== END 2018-02-25 20:48 | disposition home or self-care (01) ==
LOC: ED 18:31
PROVIDERS: Nurse Practitioner Family
DX: J20.9 Acute bronchitis, unspecified (principal); F17.200 Nicotine dependence, unspecified, uncomplicated; Z98.890 Other specified postprocedural states; Z90.49 Acquired absence of other specified parts of digestive tract; Z79.899 Other long term (current) drug therapy; Z88.2 Allergy status to sulfonamides; Z88.0 Allergy status to penicillin; Z88.6 Allergy status to analgesic agent

== ENCOUNTER 2018-07-05 18:53 | Emergency (ER) | payer BC ==
[~2018-07-05] VITALS: Ht 162.5 cm; Wt 105.2 kg
[~2018-07-05 18:53] MED LIST changes: +PREDNISONE50 MG PO; +ROBITUSSIN DM 105 ML PO; +ZITHROMAX250 MG PO
[2018-07-05] MEDS ORDERED: TAMIFLU 75MG CA75 MG PO (20:06)
[2018-07-05] MEDS ORDERED: CEFUROXIME AXE500 MG PO (20:06)
[2018-09-03] MEDS ORDERED: ZITHROMAX250 MG PO (21:37)
[2018-09-03] MEDS ORDERED: ZOFRAN4 MG PO (21:37)
[2018-12-08] MEDS ORDERED: CLINDAMYCIN HC300 MG PO (21:12)
== END 2018-07-05 20:05 | disposition home or self-care (01) ==
LOC: ED 18:53
DX: J10.1 Influenza due to other identified influenza virus with other respiratory manifestations (principal); H66.91 Otitis media, unspecified, right ear; G43.909 Migraine, unspecified, not intractable, without status migrainosus; Z79.899 Other long term (current) drug therapy; Z88.2 Allergy status to sulfonamides; Z88.0 Allergy status to penicillin; Z88.6 Allergy status to analgesic agent

== ENCOUNTER → 2018-12-20 | Outpatient (CLI) | payer BC ==
[~2018-12-20] MED LIST changes: +CEFUROXIME AXE500 MG PO; +TAMIFLU 75MG CA75 MG PO; +ZOFRAN4 MG PO
--- NOTE | ~2018-12-20 | HM ---
[place], [place] HOLTER MONITOR REPORT NAME: CHANDA CORNELIUS UNIT #: [id number] ROOM: DOCTOR: MELANIA GARCIA MD BIRTHDATE: [birth year] DOS: 24-HOUR HOLTER REASON FOR TESTING: Evaluation of palpitations. FINDINGS: Resting heart rate was 76. The minimum heart rate was 59 with a maximum heart rate of 107. The patient remained in sinus rhythm during the evaluation. No arrhythmias were noticed during this. MELANIA GARCIA MD CM:HOLTER:HOLTER MONITOR REPORT [id number] MELANIA GARCIA MD
== END | disposition home or self-care (01) ==
LOC: CARD 10:30
DX: R00.2 Palpitations (principal)

== ENCOUNTER → 2020-07-22 | Outpatient (CLI) | payer BC ==
[2020-07-23 10:07] LABS: HEPATITIS B SURFACE AB Non Reactive (.)
[2020-07-23 16:08] LABS: MUMPS ANTIBODIES, IGG <9.0 AU/mL (Immune >10.9); VARICELLA-ZOSTER IGG 1970 index (Immune >165)
== END | disposition home or self-care (01) ==
LOC: LAB 12:31
PROVIDERS: ATTEND Internal Medicine
DX: Z11.59 Encounter for screening for other viral diseases (principal); Z01.84 Encounter for antibody response examination

== ENCOUNTER 2020-11-09 14:43 | Emergency (ER) | payer BC ==
[~2020-11-09] VITALS: Ht 162.5 cm; Wt 109.8 kg
== END 2020-11-09 16:30 | disposition home or self-care (01) ==
LOC: ED 14:43
DX: M79.671 Pain in right foot (principal); M25.571 Pain in right ankle and joints of right foot; G43.909 Migraine, unspecified, not intractable, without status migrainosus; Z88.2 Allergy status to sulfonamides; Z88.0 Allergy status to penicillin; Z88.8 Allergy status to other drugs, medicaments and biological substances; Z79.2 Long term (current) use of antibiotics; Z79.899 Other long term (current) drug therapy; Z98.890 Other specified postprocedural states; Z90.49 Acquired absence of other specified parts of digestive tract

== ENCOUNTER 2021-03-11 15:05 | Emergency (ER) | payer BC ==
[~2021-03-11] VITALS: Ht 162.5 cm; Wt 104.3 kg
[2021-03-11] MEDS ORDERED: ZITHROMAX250 MG PO (22:21)
[2021-03-11] MEDS ORDERED: PREDNISONE20 M1 PO (22:21)
== END 2021-03-11 22:24 | disposition home or self-care (01) ==
LOC: ED 15:05
DX: J40 Bronchitis, not specified as acute or chronic (principal); Z88.0 Allergy status to penicillin; Z88.2 Allergy status to sulfonamides; Z88.8 Allergy status to other drugs, medicaments and biological substances

== ENCOUNTER → 2021-04-14 | Outpatient (CLI) | payer BC ==
[~2021-04-14] MED LIST changes: +PREDNISONE20 M1 PO
[2021-04-14 14:39] LABS: BASO % 0.4 % (0.0-1.0); EOS # 0.2 10*3/uL (0.0-0.4); EOS % 1.8 % (1.0-4.0); HEMATOCRIT 42.4 % (37.0-47.0); LYMPH # 2.3 10*3/uL (1.3-4.4); LYMPH % 22.3 % (27.0-41.0); MEAN CELL VOLUME 89.6 fl (81.0-99.0); MEAN CORPUSCULAR HGB 29.4 pg (27.0-31.0); MEAN CORPUSCULAR HGB CONC 32.8 g/dl (33.0-37.0); MEAN PLATELET VOLUME 11.5 fl (9.6-12.3); MONO # 0.8 10*3/uL (0.1-1.0); MONO % 7.6 % (3.0-9.0); NEUT % 67.7 % (47.0-73.0); PLATELET COUNT AUTOMATED 171 10*3/uL (130-400); RED BLOOD COUNT 4.73 10*6/uL (4.10-5.10); RED CELL DISTRI WIDTH 14.5 % (0-14.5); WHITE BLOOD COUNT 10.3 10*3/uL (4.8-10.8)
[2021-04-14 14:56] LABS: ALBUMIN 3.4 gm/dl (3.1-4.5); BUN 11 mg/dl (7-24); CHLORIDE 107 mmol/L (98-107); CHOLESTEROL 230 mg/dL (<200); CREATININE 0.95 mg/dL (0.55-1.02); FREE T4 0.85 ng/dl (0.76-1.46); POTASSIUM 3.7 mmol/L (3.5-5.1); SGOT/AST 16 IU/L (3-35); SODIUM 140 mmol/L (136-145); TOTAL PROTEIN 7.3 gm/dL (6.4-8.2); TRIGLYCERIDES 435 mg/dl (<150)
[2021-04-14 15:01] LABS: ALKALINE PHOSPHATASE 67 U/L (45-117); SGPT/ALT 32 U/L (12-78)
[2021-04-14 15:28] LABS: VITAMIN D, 25-HYDROXY 9.6 ng/mL (30-100)
== END | disposition home or self-care (01) ==
LOC: LAB 13:50
PROVIDERS: ATTEND Internal Medicine
DX: Z00.00 Encounter for general adult medical examination without abnormal findings (principal); Z13.220 Encounter for screening for lipoid disorders; I10 Essential (primary) hypertension; R06.02 Shortness of breath; Z13.1 Encounter for screening for diabetes mellitus; Z13.21 Encounter for screening for nutritional disorder; E55.9 Vitamin D deficiency, unspecified

== ENCOUNTER 2021-08-16 15:25 | Emergency (ER) | payer BC ==
[~2021-08-16] VITALS: Ht 162.5 cm; Wt 108.9 kg
[2021-08-16] MEDS ORDERED: CYCLOBENZAPRINE10 MG PO (16:00)
[2021-08-16] MEDS ORDERED: NAPROSYN500 MG PO (16:00)
[2021-08-16] MEDS ORDERED: PREDNISONE20 M1 PO (16:00)
[2021-08-16] MEDS ORDERED: HYDROCODONE-AC1 EAC1 PO (16:00)
== END 2021-08-16 16:05 | disposition home or self-care (01) ==
LOC: ED 15:25
DX: S46.911A Strain of unspecified muscle, fascia and tendon at shoulder and upper arm level, right arm, initial encounter (principal); M43.6 Torticollis; I10 Essential (primary) hypertension; F17.200 Nicotine dependence, unspecified, uncomplicated; Z88.2 Allergy status to sulfonamides; Z88.0 Allergy status to penicillin; Z88.8 Allergy status to other drugs, medicaments and biological substances; Z98.890 Other specified postprocedural states; Z90.49 Acquired absence of other specified parts of digestive tract; X50.9XXA Other and unspecified overexertion or strenuous movements or postures, initial encounter; Y93.89 Activity, other specified; Y92.89 Other specified places as the place of occurrence of the external cause; Y99.8 Other external cause status

== ENCOUNTER → 2021-09-09 | Outpatient (CLI) | payer BC ==
[~2021-09-09] MED LIST changes: +CYCLOBENZAPRINE10 MG PO; +HYDROCODONE-AC1 EAC1 PO
== END | disposition home or self-care (01) ==
LOC: RAD 08:34
PROVIDERS: ATTEND Internal Medicine
DX: M19.011 Primary osteoarthritis, right shoulder (principal)

== ENCOUNTER 2021-10-21 10:57 | Emergency (ER) | payer BC ==
[~2021-10-21] VITALS: Ht 162.5 cm; Wt 108.9 kg
[2021-10-21] MEDS ORDERED: SIMVASTATIN10 MG PO (11:08)
[2021-10-21] MEDS ORDERED: MELOXICAM7.5 MG PO (11:51)
== END 2021-10-21 14:16 | disposition home or self-care (01) ==
LOC: ED 10:57
DX: S90.32XA Contusion of left foot, initial encounter (principal); Z88.0 Allergy status to penicillin; Z88.2 Allergy status to sulfonamides; Z88.8 Allergy status to other drugs, medicaments and biological substances; Z98.890 Other specified postprocedural states; Z90.89 Acquired absence of other organs; Z90.49 Acquired absence of other specified parts of digestive tract; W22.8XXA Striking against or struck by other objects, initial encounter; Y93.89 Activity, other specified; Y92.89 Other specified places as the place of occurrence of the external cause; Y99.8 Other external cause status

== ENCOUNTER 2021-11-28 07:55 | Emergency (ER) | payer OTHER ==
[~2021-11-28 07:55] MED LIST changes: +MELOXICAM7.5 MG PO; +SIMVASTATIN10 MG PO
== END 2021-11-28 10:53 | disposition home or self-care (01) ==
LOC: ED 07:55
DX: S93.691A Other sprain of right foot, initial encounter (principal); Z98.890 Other specified postprocedural states; Z90.49 Acquired absence of other specified parts of digestive tract; Z88.0 Allergy status to penicillin; Z88.6 Allergy status to analgesic agent; Z88.2 Allergy status to sulfonamides; W18.30XA Fall on same level, unspecified, initial encounter; Y93.01 Activity, walking, marching and hiking; Y92.481 Parking lot as the place of occurrence of the external cause; Y99.9 Unspecified external cause status

== ENCOUNTER 2022-02-23 18:35 | Emergency (ER) | payer OTHER ==
[~2022-02-23] VITALS: Ht 162.5 cm; Wt 113.4 kg
[2022-02-23 18:51] VITALS: BP 110/50
[2022-02-23 20:46] LABS: HEMATOCRIT 41.5 % (37.0-47.0); MEAN CELL VOLUME 89.1 fl (81.0-99.0); MEAN CORPUSCULAR HGB CONC 32.5 g/dl (33.0-37.0); MEAN PLATELET VOLUME 11.5 fl (9.6-12.3); PLATELET COUNT AUTOMATED 103 10*3/uL (130-400); RED BLOOD COUNT 4.66 10*6/uL (4.10-5.10); RED CELL DISTRI WIDTH 15.3 % (0-14.5)
[2022-02-23 20:52] LABS: MANUAL DIFF REFLEX YES
[2022-02-23 21:08] LABS: ALKALINE PHOSPHATASE 62 U/L (45-117); BUN 8 mg/dl (7-24); CHLORIDE 109 mmol/L (98-107); CREATININE 0.98 mg/dL (0.55-1.02); POTASSIUM 3.3 mmol/L (3.5-5.1); SGOT/AST 41 IU/L (3-35); SGPT/ALT 49 U/L (12-78); SODIUM 139 mmol/L (136-145); TOTAL PROTEIN 6.8 gm/dL (6.4-8.2)
[2022-02-23 21:19] LABS: ATYPICAL LYMPHS 14 % (0-0); TOTAL CELLS COUNTED 100 #CELLS
[2022-02-23 21:20] LABS: POLYCHROMASIA SLIGHT
[2022-02-23 21:21] LABS: PLATELET SUFFICIENCY LOW (NORMAL)
[2022-02-23 23:40] LABS: BILIRUBIN Negative (Negative); BLOOD Negative (Negative); CLARITY Clear (Clear); COLOR Dark Yellow (Yellow); GLUCOSE Negative (Negative); KETONE Trace (Negative); LEUKO ESTERASE Negative (Negative); NITRITE Negative (Negative); SPECIFIC GRAVITY 1.025 (1.001-1.030)
[2022-02-23 23:48] LABS: BACTERIA 1+; MUCOUS 1+
[2022-02-24] MEDS ORDERED: ZITHROMAX250 MG PO (03:09)
== END 2022-02-24 03:45 | disposition home or self-care (01) ==
LOC: ED 18:35 → EDHOLD 02-24 01:16 → ED 02-24 03:45
PROVIDERS: Emergency Medicine
DX: J40 Bronchitis, not specified as acute or chronic (principal); Z20.822 Contact with and (suspected) exposure to COVID-19; J98.01 Acute bronchospasm; Z53.20 Procedure and treatment not carried out because of patient's decision for unspecified reasons; F17.200 Nicotine dependence, unspecified, uncomplicated; Z88.0 Allergy status to penicillin; Z88.2 Allergy status to sulfonamides; Z88.8 Allergy status to other drugs, medicaments and biological substances; Z98.890 Other specified postprocedural states; Z90.49 Acquired absence of other specified parts of digestive tract; Z90.89 Acquired absence of other organs

== ENCOUNTER → 2022-02-25 | Outpatient (CLI) | payer OTHER ==
[2022-02-25 13:18] LABS: FREE T4 1.1 ng/dl (0.76-1.46)
[2022-02-25 13:24] LABS: THYROID STIM HORMONE (HS) 2.48 uIU/ml (0.358-4.75)
== END | disposition home or self-care (01) ==
LOC: LAB 12:37
PROVIDERS: ATTEND Internal Medicine
DX: Z13.0 Encounter for screening for diseases of the blood and blood-forming organs and certain disorders involving the immune mechanism (principal); Z13.1 Encounter for screening for diabetes mellitus; Z13.220 Encounter for screening for lipoid disorders; Z13.21 Encounter for screening for nutritional disorder; Z13.228 Encounter for screening for other metabolic disorders; Z13.29 Encounter for screening for other suspected endocrine disorder; Z13.6 Encounter for screening for cardiovascular disorders; Z13.89 Encounter for screening for other disorder; Z13.9 Encounter for screening, unspecified; E03.8 Other specified hypothyroidism; E03.9 Hypothyroidism, unspecified; R94.6 Abnormal results of thyroid function studies

== ENCOUNTER → 2022-03-25 | Outpatient (CLI) | payer OTHER | LOC: CARD 08:27 | PROVIDERS: ATTEND Internal Medicine | DX: R00.0 Tachycardia, unspecified (principal); I10 Essential (primary) hypertension ==

== ENCOUNTER → 2022-06-30 | Outpatient (CLI) | payer OTHER | END | disposition home or self-care (01) | LOC: US 05-11 10:30 | PROVIDERS: ATTEND Internal Medicine | DX: E04.2 Nontoxic multinodular goiter (principal) ==

== ENCOUNTER → 2023-01-14 | Outpatient (CLI) | payer BC ==
[2023-01-14 11:28] LABS: BASO % 0.4 % (0.0-1.0); EOS # 0.2 10*3/uL (0.0-0.4); EOS % 2.5 % (1.0-4.0); HEMATOCRIT 42.6 % (37.0-47.0); LYMPH # 1.9 10*3/uL (1.3-4.4); LYMPH % 26.4 % (27.0-41.0); MEAN CELL VOLUME 88.8 fl (81.0-99.0); MEAN CORPUSCULAR HGB 29.8 pg (27.0-31.0); MEAN CORPUSCULAR HGB CONC 33.6 g/dl (33.0-37.0); MEAN PLATELET VOLUME 11.1 fl (9.6-12.3); MONO # 0.5 10*3/uL (0.1-1.0); MONO % 7.4 % (3.0-9.0); NEUT # 4.5 10*3/uL (2.3-7.9); PLATELET COUNT AUTOMATED 146 10*3/uL (130-400); RED CELL DISTRI WIDTH 13.9 % (0-14.5); WHITE BLOOD COUNT 7.2 10*3/uL (4.8-10.8)
[2023-01-14 11:45] LABS: ALKALINE PHOSPHATASE 75 U/L (46-116); BUN 11 mg/dl (9-23); CHLORIDE 105 mmol/L (98-107); CHOLESTEROL 181 mg/dL (<200); LDL CHOLESTEROL 84 mg/dL (9-159); SGPT/ALT 23 U/L (10-49); TOTAL PROTEIN 7.1 gm/dL (6.0-8.0); TRIGLYCERIDES 321 mg/dl (<150)
[2023-01-14 12:43] LABS: VITAMIN D, 25-HYDROXY 28.1 ng/mL (30-100)
== END | disposition home or self-care (01) ==
LOC: LAB 11:04
PROVIDERS: ATTEND Internal Medicine
DX: Z13.0 Encounter for screening for diseases of the blood and blood-forming organs and certain disorders involving the immune mechanism (principal); Z13.1 Encounter for screening for diabetes mellitus; Z13.21 Encounter for screening for nutritional disorder; Z13.220 Encounter for screening for lipoid disorders; Z13.29 Encounter for screening for other suspected endocrine disorder; Z13.228 Encounter for screening for other metabolic disorders; Z13.6 Encounter for screening for cardiovascular disorders; Z13.89 Encounter for screening for other disorder; Z13.9 Encounter for screening, unspecified; I10 Essential (primary) hypertension; F33.0 Major depressive disorder, recurrent, mild; J44.1 Chronic obstructive pulmonary disease with (acute) exacerbation; F41.1 Generalized anxiety disorder

== ENCOUNTER → 2023-02-04 | Outpatient (CLI) | payer BC | END | disposition home or self-care (01) | LOC: MAMMO 00:06 | PROVIDERS: ATTEND Internal Medicine | DX: Z12.31 Encounter for screening mammogram for malignant neoplasm of breast (principal); N63.10 Unspecified lump in the right breast, unspecified quadrant; N63.20 Unspecified lump in the left breast, unspecified quadrant ==

== ENCOUNTER → 2025-01-04 | Outpatient (CLI) | payer OTHER ==
[2025-01-04 09:08] LABS: BASO # 0.0 10*3/uL (0.0-0.1); BASO % 0.5 % (0.0-1.0); EOS # 0.2 10*3/uL (0.0-0.4); EOS % 3.6 % (1.0-4.0); MEAN CELL VOLUME 90.9 fl (81.0-99.0); MEAN CORPUSCULAR HGB 29.4 pg (27.0-31.0); MEAN PLATELET VOLUME 11.2 fl (9.6-12.3); MONO # 0.5 10*3/uL (0.1-1.0); MONO % 8.4 % (3.0-9.0); NEUT # 3.8 10*3/uL (2.3-7.9); NEUT % 62.4 % (47.0-73.0); NUCLEATED RED BLOOD CELL 0.0 % (0.0-0.0); NUCLEATED RED BLOOD CELL 0.0 10*3/uL (0.0-0.0); PLATELET COUNT AUTOMATED 166 10*3/uL (130-400); RED CELL DISTRI WIDTH 12.8 % (0-14.5)
[2025-01-04 09:32] LABS: BUN 13 mg/dl (9-23); FREE T4 1.29 ng/dl (0.89-1.76); LDL CHOLESTEROL 78 mg/dL (9-159); SGPT/ALT 29 U/L (5-49)
[2025-01-04 10:00] LABS: VITAMIN D, 25-HYDROXY 57.0 ng/mL (30-100)
== END | disposition home or self-care (01) ==
LOC: LAB 08:38
PROVIDERS: ATTEND Internal Medicine
DX: I10 Essential (primary) hypertension (principal); E11.9 Type 2 diabetes mellitus without complications; E53.9 Vitamin B deficiency, unspecified; E55.9 Vitamin D deficiency, unspecified; E78.2 Mixed hyperlipidemia; R53.83 Other fatigue; F17.210 Nicotine dependence, cigarettes, uncomplicated